=== PATIENT | female | born 1990 | race Caucasian/White ===

== ENCOUNTER 2017-10-14 20:56 | Emergency (ER) | payer OTHER, MEDICAID ==
[~2017-10-14] VITALS: Ht 165.1 cm; Wt 91.0 kg
[2017-10-14 23:30] LABS: CLARITY URINE CLEAR (CLEAR); COLOR URINE YELLOW (YELLOW); KETONES URINE NEGATIVE (NEGATIVE); LEUKOCYTE ESTERASE URINE TRACE (NEGATIVE); NITRITE URINE NEGATIVE (NEGATIVE); OCCULT BLOOD URINE NEGATIVE (NEGATIVE); PH URINE 6.5 (4.5-8.0); PROTEIN URINE NEGATIVE (NEGATIVE); SPECIFIC GRAVITY URINE 1.011 (1.005-1.030); UROBILINOGEN URINE 0.2 E.U./dL (0.2-1.0)
[2017-10-15 00:02] LABS: BASOPHILS % 0.4 % (0.0-2.0); EOSINOPHILS % 0.7 % (0.0-5.0); HEMATOCRIT. 39.1 % (36.0-48.0); HEMOGLOBIN. 13.4 g/dL (12.0-16.0); LYMPHOCYTES % 28.2 % (20.0-50.0); MEAN CORPUSCULAR HEMOGLOBIN 30.9 pg (28.0-32.0); MEAN CORPUSCULAR VOLUME 90.4 fL (81.0-99.0); MEAN PLATELET VOLUME 7.4 fl (7.4-10.4); MONOCYTES % 5.6 % (2.0-8.0); NEUTROPHILS % 65.1 % (40.0-76.0); PLATELET 264 x1000/uL (130-400); RED BLOOD CELL COUNT 4.33 mill/uL (4.2-5.4); RED CELL DISTRIBUTION WIDTH 12.9 % (11.6-14.6)
[2017-10-15 00:11] LABS: CHLORIDE 103 mEq/L (98-107)
[2017-10-15 00:21] LABS: CARBON DIOXIDE 28 mEq/L (21-32); ETHANOL BLOOD < 10 mg/dL
[2017-10-15 00:27] LABS: *AMPHETAMINES SCREEN URINE NEGATIVE (NEGATIVE); *BARBITURATES SCREEN URINE NEGATIVE (NEGATIVE); *BENZODIAZEPINES SCREEN URINE NEGATIVE (NEGATIVE); *COCAINE SCREEN URINE NEGATIVE (NEGATIVE); CANNABINOID URINE SCREEN NEGATIVE (NEGATIVE); METHADONE URINE SCREEN NEGATIVE (NEGATIVE); OPIATES URINE SCREEN NEGATIVE (NEGATIVE); PHENCYCLIDINE URINE SCREEN NEGATIVE (NEGATIVE)
[2017-10-15] MEDS ORDERED: LORAZEPAM 1MG TABLET PO ONE (04:00)
[2017-10-15 11:30] VITALS: BP 126/88
== END 2017-10-15 12:42 | disposition home or self-care (01) ==
LOC: ER 20:56
DX: F84.0 Autistic disorder (principal); N39.0 Urinary tract infection, site not specified; R45.851 Suicidal ideations; F31.9 Bipolar disorder, unspecified; F32.9 Major depressive disorder, single episode, unspecified
CPT/HCPCS: 36415; 80053; 80305; 80307; 80329; 81001; 81025; 85025; 99284; G0482

== ENCOUNTER 2018-08-19 16:00 | Emergency (ER) | payer OTHER, MEDICAID ==
[~2018-08-19] VITALS: Ht 170.2 cm; Wt 87.0 kg
[2018-08-19 16:57] LABS: BASOPHILS % 0.8 % (0.0-2.0); EOSINOPHILS % 0.5 % (0.0-5.0); HEMATOCRIT. 38.3 % (36.0-48.0); HEMOGLOBIN. 13.6 g/dL (12.0-16.0); LYMPHOCYTES % 16.4 % (20.0-50.0); MEAN CORPUSCULAR HEMOGLOBIN 32.4 pg (28.0-32.0); MEAN CORPUSCULAR VOLUME 91.6 fL (81.0-99.0); MEAN PLATELET VOLUME 7.5 fl (7.4-10.4); MONOCYTES % 6.8 % (2.0-8.0); NEUTROPHILS % 75.5 % (40.0-76.0); PLATELET 300 x1000/uL (130-400); RED BLOOD CELL COUNT 4.18 mill/uL (4.2-5.4); RED CELL DISTRIBUTION WIDTH 12.6 % (11.6-14.6)
[2018-08-19 17:02] LABS: CHLORIDE 102 mEq/L (98-107)
[2018-08-19 17:14] LABS: ETHANOL BLOOD < 10 mg/dL
[2018-08-19 18:50] LABS: CLARITY URINE CLOUDY (CLEAR); COLOR URINE YELLOW (YELLOW); KETONES URINE NEGATIVE (NEGATIVE); LEUKOCYTE ESTERASE URINE 1+ (NEGATIVE); NITRITE URINE NEGATIVE (NEGATIVE); OCCULT BLOOD URINE 3+ (NEGATIVE); PROTEIN URINE NEGATIVE (NEGATIVE); SPECIFIC GRAVITY URINE 1.006 (1.005-1.030); UROBILINOGEN URINE 0.2 E.U./dL (0.2-1.0)
[2018-08-19 19:07] LABS: *AMPHETAMINES SCREEN URINE NEGATIVE (NEGATIVE); *BARBITURATES SCREEN URINE NEGATIVE (NEGATIVE); *COCAINE SCREEN URINE NEGATIVE (NEGATIVE)
[2018-08-19 19:10] LABS: *BENZODIAZEPINES SCREEN URINE NEGATIVE (NEGATIVE); CANNABINOID URINE SCREEN NEGATIVE (NEGATIVE); METHADONE URINE SCREEN NEGATIVE (NEGATIVE); OPIATES URINE SCREEN NEGATIVE (NEGATIVE); PHENCYCLIDINE URINE SCREEN NEGATIVE (NEGATIVE)
[2018-08-19] MEDS ORDERED: CEPHALEXIN 250MG CAPSULE PO NR (23:30)
[2018-08-20 14:15] VITALS: BP 109/66
== END 2018-08-20 14:14 | disposition home or self-care (01) ==
LOC: ER 16:00
DX: R45.851 Suicidal ideations (principal); N39.0 Urinary tract infection, site not specified; F32.9 Major depressive disorder, single episode, unspecified; F84.0 Autistic disorder; F90.9 Attention-deficit hyperactivity disorder, unspecified type
CPT/HCPCS: 36415; 80053; 80305; 81003; 81025; 83690; 85025; 87086; 99284; G0482

== ENCOUNTER 2019-07-06 19:05 | Emergency (ER) | payer OTHER, MEDICAID ==
[~2019-07-06] VITALS: Ht 172.7 cm; Wt 90.0 kg
[2019-07-06 21:02] LABS: CLARITY URINE CLEAR (CLEAR); COLOR URINE YELLOW (YELLOW); KETONES URINE NEGATIVE (NEGATIVE); LEUKOCYTE ESTERASE URINE NEGATIVE (NEGATIVE); NITRITE URINE NEGATIVE (NEGATIVE); OCCULT BLOOD URINE 2+ (NEGATIVE); PROTEIN URINE NEGATIVE (NEGATIVE); SPECIFIC GRAVITY URINE 1.027 (1.005-1.030)
[2019-07-06 21:04] LABS: EOSINOPHILS % 0.6 % (0.0-5.0); HEMATOCRIT. 36.2 % (36.0-48.0); HEMOGLOBIN. 12.4 g/dL (12.0-16.0); LYMPHOCYTES % 27.1 % (20.0-50.0); MEAN CORPUSCULAR HEMOGLOBIN 30.4 pg (28.0-32.0); MEAN CORPUSCULAR VOLUME 88.5 fL (81.0-99.0); MEAN PLATELET VOLUME 8.1 fl (7.4-10.4); MONOCYTES % 7.8 % (2.0-8.0); NEUTROPHILS % 63.5 % (40.0-76.0); PLATELET 233 x1000/uL (130-400); RED BLOOD CELL COUNT 4.09 mill/uL (4.2-5.4); RED CELL DISTRIBUTION WIDTH 14.1 % (11.6-14.6)
[2019-07-06 21:07] LABS: CHLORIDE 107 mEq/L (98-107)
[2019-07-06 21:12] LABS: ETHANOL BLOOD < 10 mg/dL
[2019-07-06 21:34] LABS: *BARBITURATES SCREEN URINE NEGATIVE (NEGATIVE)
[2019-07-06 21:35] LABS: *AMPHETAMINES SCREEN URINE NEGATIVE (NEGATIVE); *COCAINE SCREEN URINE NEGATIVE (NEGATIVE); CANNABINOID URINE SCREEN NEGATIVE (NEGATIVE); METHADONE URINE SCREEN NEGATIVE (NEGATIVE); OPIATES URINE SCREEN NEGATIVE (NEGATIVE); PHENCYCLIDINE URINE SCREEN NEGATIVE (NEGATIVE)
[2019-07-06 21:37] LABS: *BENZODIAZEPINES SCREEN URINE PRESUMTIVE POSITIVE (NEGATIVE)
[2019-07-06] MEDS ORDERED: ACETAMINOPHEN 325MG TABLET PO ONE (21:45)
[2019-07-06] MEDS ORDERED: ONDANSETRON 4MG ODT PO ONE (21:45)
[2019-07-07] MEDS ORDERED: PYRIDOXINE HCL 50MG TABLET PO SCH (12:00)
[2019-07-07] MEDS ORDERED: BUPROPION HCL 150MG TABLET XL 24HR PO SCH (12:00)
[2019-07-07] MEDS ORDERED: DIVALPROEX SODIUM 250MG ER TABLET PO SCH (13:00)
[2019-07-07 14:50] VITALS: BP 105/67
== END 2019-07-07 14:50 | disposition home or self-care (01) ==
LOC: ER 19:29
DX: R45.851 Suicidal ideations (principal); F19.920 Other psychoactive substance use, unspecified with intoxication, uncomplicated; F31.9 Bipolar disorder, unspecified; F20.9 Schizophrenia, unspecified
CPT/HCPCS: 36415; 80053; 80165; 80305; 80307; 80320; 80329; 81003; 81025; 85025; 99284; Q0162; Z7610; G0480

== ENCOUNTER 2019-07-11 18:17 | Emergency (ER) | payer OTHER, MEDICAID ==
[~2019-07-11] VITALS: Ht 162.6 cm; Wt 88.0 kg
[2019-07-11 19:35] LABS: CLARITY URINE CLEAR (CLEAR); COLOR URINE YELLOW (YELLOW); KETONES URINE NEGATIVE (NEGATIVE); LEUKOCYTE ESTERASE URINE NEGATIVE (NEGATIVE); NITRITE URINE NEGATIVE (NEGATIVE); OCCULT BLOOD URINE NEGATIVE (NEGATIVE); PH URINE 7.5 (4.5-8.0); PROTEIN URINE NEGATIVE (NEGATIVE); SPECIFIC GRAVITY URINE 1.007 (1.005-1.030); UROBILINOGEN URINE 0.2 E.U./dL (0.2-1.0)
[2019-07-11 22:53] LABS: EOSINOPHILS % 0.7 % (0.0-5.0); HEMATOCRIT. 36.7 % (36.0-48.0); HEMOGLOBIN. 12.4 g/dL (12.0-16.0); LYMPHOCYTES % 31.4 % (20.0-50.0); MEAN CORPUSCULAR VOLUME 88.9 fL (81.0-99.0); MEAN PLATELET VOLUME 8.3 fl (7.4-10.4); MONOCYTES % 5.9 % (2.0-8.0); PLATELET 241 x1000/uL (130-400); RED BLOOD CELL COUNT 4.13 mill/uL (4.2-5.4)
[2019-07-12 00:29] LABS: CHLORIDE 108 mEq/L (98-107)
[2019-07-12 00:37] LABS: ETHANOL BLOOD < 10 mg/dL
[2019-07-12 11:58] LABS: *AMPHETAMINES SCREEN URINE NEGATIVE (NEGATIVE); *BARBITURATES SCREEN URINE NEGATIVE (NEGATIVE); *COCAINE SCREEN URINE NEGATIVE (NEGATIVE)
[2019-07-12 11:59] LABS: CANNABINOID URINE SCREEN NEGATIVE (NEGATIVE); METHADONE URINE SCREEN NEGATIVE (NEGATIVE); OPIATES URINE SCREEN NEGATIVE (NEGATIVE); PHENCYCLIDINE URINE SCREEN NEGATIVE (NEGATIVE)
[2019-07-12 12:02] LABS: *BENZODIAZEPINES SCREEN URINE PRESUMTIVE POSITIVE (NEGATIVE)
[2019-07-13 05:36] VITALS: BP 128/78
== END 2019-07-13 06:05 | disposition home or self-care (01) ==
LOC: ER 18:24
DX: R42 Dizziness and giddiness (principal); R45.851 Suicidal ideations; Z76.5 Malingerer [conscious simulation]; F31.9 Bipolar disorder, unspecified; F20.9 Schizophrenia, unspecified; F84.0 Autistic disorder; Z75.1 Person awaiting admission to adequate facility elsewhere
CPT/HCPCS: 36415; 80305; 80320; 81003; 81025; 82962; 99283; G0480

== ENCOUNTER 2019-07-25 16:49 | Emergency (ER) | payer OTHER, MEDICAID ==
[~2019-07-25] VITALS: Ht 165.1 cm; Wt 92.0 kg
[2019-07-25 19:26] LABS: BASOPHILS % 0.8 % (0.0-2.0); EOSINOPHILS % 0.5 % (0.0-5.0); HEMATOCRIT. 36.1 % (36.0-48.0); HEMOGLOBIN. 12.4 g/dL (12.0-16.0); MEAN CORPUSCULAR HEMOGLOBIN 30.3 pg (28.0-32.0); MEAN CORPUSCULAR VOLUME 88.1 fL (81.0-99.0); MEAN PLATELET VOLUME 7.9 fl (7.4-10.4); MONOCYTES % 5.9 % (2.0-8.0); NEUTROPHILS % 71.8 % (40.0-76.0); PLATELET 231 x1000/uL (130-400); RED BLOOD CELL COUNT 4.09 mill/uL (4.2-5.4)
[2019-07-25 19:34] LABS: CHLORIDE 108 mEq/L (98-107)
[2019-07-25 19:37] LABS: ETHANOL BLOOD < 10 mg/dL
[2019-07-25 21:18] LABS: CLARITY URINE CLEAR (CLEAR); COLOR URINE YELLOW (YELLOW); KETONES URINE TRACE (NEGATIVE); LEUKOCYTE ESTERASE URINE TRACE (NEGATIVE); NITRITE URINE NEGATIVE (NEGATIVE); OCCULT BLOOD URINE NEGATIVE (NEGATIVE); PH URINE 7.5 (4.5-8.0); PROTEIN URINE NEGATIVE (NEGATIVE); SPECIFIC GRAVITY URINE 1.013 (1.005-1.030); UROBILINOGEN URINE 0.2 E.U./dL (0.2-1.0)
[2019-07-25 21:25] LABS: CANNABINOID URINE SCREEN NEGATIVE (NEGATIVE); PHENCYCLIDINE URINE SCREEN NEGATIVE (NEGATIVE)
[2019-07-25 21:27] LABS: *AMPHETAMINES SCREEN URINE NEGATIVE (NEGATIVE); *BARBITURATES SCREEN URINE NEGATIVE (NEGATIVE); *BENZODIAZEPINES SCREEN URINE PRESUMTIVE POSITIVE (NEGATIVE); *COCAINE SCREEN URINE NEGATIVE (NEGATIVE); METHADONE URINE SCREEN NEGATIVE (NEGATIVE); OPIATES URINE SCREEN NEGATIVE (NEGATIVE)
[2019-07-25] MEDS ORDERED: ACETAMINOPHEN 325MG TABLET PO ONE (22:45)
[2019-07-26] MEDS ORDERED: IBUPROFEN 800MG TABLET PO ONE (07:15)
[2019-07-26] MEDS ORDERED: ACETAMINOPHEN 500MG TABLET PO ONE (07:15)
[2019-07-26] MEDS ORDERED: ONDANSETRON 4MG ODT PO PRN (10:00)
[2019-07-26] MEDS ORDERED: OMEPRAZOLE 20MG CAPSULE EXTENDED RELEASE PO ONE (10:30)
[2019-07-26] MEDS ORDERED: OLANZAPINE 10 MG/VIAL IM ONE (20:15)
[2019-07-26 23:40] VITALS: BP 110/68
== END 2019-07-26 23:59 ==
LOC: ER 16:49
DX: R45.851 Suicidal ideations (principal); F31.9 Bipolar disorder, unspecified; F20.9 Schizophrenia, unspecified
CPT/HCPCS: 36415; 80053; 80305; 80320; 81003; 85025; 96372; 99285; J3490; Q0162; Z7610; G0480